=== PATIENT | female | born 1970 | race African-American/Black ===

== ENCOUNTER 2019-05-24 15:57 | Emergency (ER) | payer SELFPAY ==
--- NOTE | 2019-05-24 16:30 | PHYS DOC ---
Past History Past Medical History: Seizure (SHAILESH MARQUEZ MD) Adult General Chief Complaint Chief Complaint: possible seizure HPI HPI 49-year-old female presents with concern for seizure. The patient tells me that she is fine and she doesn't think anything happened. Her daughter reports that she had an episode of shaking her head that lasted about 3 minutes. It then stopped. The patient had a second similar episode lasted for 4 minutes. They decided they should bring the patient to the hospital. When asked the patient if she has a seizure disorder, she states that she was diagnosed with one at many years ago. She is not able to tell me if she has had recent seizures. She is not on any seizure medications. She was reported to be smoking marijuana today. The patient is slow to answer my questions. She denies any traumas or falls. (TYREE JACKSON DO) Review of Systems Review of Systems Constitutional: Denies fever or chills [] Eyes: Denies change in visual acuity, redness, or eye pain [] HENT: Denies nasal congestion or sore throat [] Respiratory: Denies cough or shortness of breath [] Cardiovascular: No additional information not addressed in HPI [] GI: Denies abdominal pain, nausea, vomiting, bloody stools or diarrhea [] : Denies dysuria or hematuria [] Musculoskeletal: Denies back pain or joint pain [] Integument: Denies rash or skin lesions [] Neurologic: Seizure. Denies headache, focal weakness or sensory changes [] Endocrine: Denies polyuria or polydipsia [] All other systems were reviewed and found to be within normal limits, except as documented in this note. (TYREE JACKSON DO) Physical Exam Physical Exam Constitutional: Well developed, well nourished, no acute distress, non-toxic appearance. [] HENT: Normocephalic, atraumatic, bilateral external ears normal, oropharynx moist, no oral exudates, nose normal. [] Eyes: PERRLA, EOMI, conjunctiva normal, no discharge. [] Neck: Normal range of motion, no tenderness, supple, no stridor. [] Cardiovascular:Heart rate regular rhythm, no murmur [] Lungs & Thorax: Bilateral breath sounds clear to auscultation [] Abdomen: Bowel sounds normal, soft, no tenderness, no masses, no pulsatile masses. [] Skin: Warm, dry, no erythema, no rash. [] Back: No tenderness, no CVA tenderness. [] Extremities: No tenderness, no cyanosis, no clubbing, ROM intact, no edema. [] Neurologic: Slow to answer questions. Alert and oriented X 3, normal motor function, normal sensory function, no focal deficits noted. [] Psychologic: Affect normal, judgement normal, mood tearful. [] (TYREE JACKSON DO) EKG EKG Sinus rhythm, rate 63, normal axis, no ST elevations or depressions.[] (TYREE JACKSON DO) Radiology/Procedures Radiology/Procedures [] Impressions: CHEST AP ONLY History: Seizure.. Heart size is not enlarged. No evidence of pneumothorax, pleural effusion or infiltrate. Bones appear grossly intact. Degenerative spurring at the acromioclavicular joints bilaterally. Mild aortic tortuosity. IMPRESSION: No acute infiltrate. Electronically signed by: Raad Mccann MD (05/24/2019 5:12 PM) [facility] DICTATED AND SIGNED BY: RAAD MCCANN MD DATE: 05/24/191711 CC: TYREE JACKSON DO; PCP,NO ~ (TYREE JACKSON DO) Radiology/[place] [address] IMAGING REPORT Signed PATIENT: SYLVIA CURTIS ACCOUNT: [id number] : 1970 LOCATION: ER AGE: 49 SEX: F EXAM STATUS: REG ER ORD. PHYSICIAN: SHAILESH MARQUEZ MD REASON: seizure PROCEDURE: CT HEAD WO CONTRAST CT brain without contrast. HISTORY: Seizure CT scan of the brain was done without contrast. Sinuses are clear. There is no mass or shift of the midline. An acute CVA is not identified. There is no intracranial hemorrhage or subdural hematoma. Ventricles are normal in size. IMPRESSION: 1. No intracranial hemorrhage or mass or acute finding noted. Electronically signed by: Marky Flanagan MD (05/24/2019 7:22 PM) [facility] DICTATED AND SIGNED BY: MARKY FLANAGAN MD DATE: 05/24/191921 CC: SHAILESH MARQUEZ MD; PCP,NO ~ (SHAILESH MARQUEZ MD) Course & Med Decision Making Course & Med Decision Making Pertinent Labs and Imaging studies reviewed. (See chart for details) Patient's chest x-ray is unremarkable. Her EKG is unremarkable. Her labs are pending. The patient has a headache and I will give her 1 g of Tylenol. I'm signing the patient out to Dr. Marquez at 1800. He will determine her final disposition. [] (TYREE JACKSON DO) Course & Med Decision Making Impression: 1. Hx. Seizure vs Pseudoseizure 2. Hx. Anxiety Disorder. 3. Hx. Marijuana and Tobacco Use (SHAILESH MARQUEZ MD) Dragon Disclaimer Dragon Disclaimer This electronic medical record was generated, in whole or in part, using a voice recognition dictation system. (TYREE JACKSON DO) Departure Departure: Referrals: PCP,NO (PCP) Discharge Summary Visit Information Final Diagnosis Problems Medical Problems: (1) Seizure Status: Acute (SHAILESH MARQUEZ MD) Final Diagnosis Problems Medical Problems: (1) Seizure Status: Acute (TYREE JACKSON DO) Brief Hospital Course Allergies Allergies Coded Allergies Type Severity Reaction Last Updated Verified No Known Drug Allergies 05/24/19 No Vital Signs Vital Signs Date Time Temp Pulse Resp B/P (MAP) Pulse Ox O2 Delivery O2 Flow Rate FiO2 05/24/19 18:20 63 18 97 Room Air 05/24/19 18:02 96/58 (71) 05/24/19 15:57 98.0 Lab Results Laboratory Tests Test 05/24/19 17:13 05/24/19 20:10 White Blood Count 4.6 x10^3/uL (4.0-11.0) Red Blood Count 4.85 x10^6/uL (3.50-5.40) Hemoglobin 15.0 g/dL (12.0-15.5) Hematocrit 45.9 % (36.0-47.0) Mean Corpuscular Volume 95 fL (79-100) Mean Corpuscular Hemoglobin 31 pg (25-35) Mean Corpuscular Hemoglobin Concent 33 g/dL (31-37) Red Cell Distribution Width 15.5 % (11.5-14.5) Platelet Count 208 x10^3/uL (140-400) Neutrophils (%) (Auto) 54 % (31-73) Lymphocytes (%) (Auto) 31 % (24-48) Monocytes (%) (Auto) 12 % (0-9) Eosinophils (%) (Auto) 2 % (0-3) Basophils (%) (Auto) 1 % (0-3) Neutrophils # (Auto) 2.5 x10^3uL (1.8-7.7) Lymphocytes # (Auto) 1.4 x10^3/uL (1.0-4.8) Monocytes # (Auto) 0.6 x10^3/uL (0.0-1.1) Eosinophils # (Auto) 0.1 x10^3/uL (0.0-0.7) Basophils # (Auto) 0.0 x10^3/uL (0.0-0.2) Erythrocyte Sedimentation Rate 5 (0-25) Sodium Level 141 mmol/L (136-145) Potassium Level 4.5 mmol/L (3.5-5.1) Chloride Level 104 mmol/L (98-107) Carbon Dioxide Level 30 mmol/L (21-32) Anion Gap 7 (6-14) Blood Urea Nitrogen 9 mg/dL (7-20) Creatinine 0.7 mg/dL (0.6-1.0) Estimated GFR (Cockcroft-Gault) 106.7 BUN/Creatinine Ratio 13 (6-20) Glucose Level 99 mg/dL (70-99) Calcium Level 9.6 mg/dL (8.5-10.1) Total Bilirubin 0.3 mg/dL (0.2-1.0) Aspartate Amino Transf (AST/SGOT) 17 U/L (15-37) Alanine Aminotransferase (ALT/SGPT) 25 U/L (14-59) Alkaline Phosphatase 75 U/L (46-116) Troponin I Quantitative < 0.017 ng/mL (0-0.055) Total Protein 7.5 g/dL (6.4-8.2) Albumin 3.7 g/dL (3.4-5.0) Albumin/Globulin Ratio 1.0 (1.0-1.7) Urine Collection Type Unknown Urine Color Mar Urine Clarity Cloudy Urine pH 6.0 Urine Specific Bee 1.025 Urine Protein 30 mg/dl (NEG-TRACE) Urine Glucose (UA) Neg mg/dL (NEG) Urine Ketones (Stick) Neg mg/dL (NEG) Urine Blood Large (NEG) Urine Nitrite Neg (NEG) Urine Bilirubin Neg (NEG) Urine Urobilinogen Dipstick 1 mg/dL (0.2 mg/dL) Urine Leukocyte Esterase Neg (NEG) Urine RBC 6-10 /HPF (0-2) Urine WBC Occ /HPF (0-4) Urine Squamous Epithelial Cells Mod /LPF Urine Bacteria Few /HPF (0-FEW) Urine Mucus Slight /LPF Urine Opiates Screen Neg (NEG) Urine Methadone Screen Neg (NEG) Urine Barbiturates Neg (NEG) Urine Phencyclidine Screen Neg (NEG) Urine Amphetamine/Methamphetamine Neg (NEG) Urine Benzodiazepines Screen Neg (NEG) Urine Cocaine Screen Neg (NEG) Urine Cannabinoids Screen Pos (NEG) Urine Ethyl Alcohol Neg (NEG) Brief Hospital Course Ms. Curtis is a 49 old female who presented with hx of seizure vs pseudo seizure. (SHAILESH MARQUEZ MD) Allergies Allergies Coded Allergies Type Severity Reaction Last Updated Verified No Known Drug Allergies 05/24/19 No Vital Signs Vital Signs Date Time Temp Pulse Resp B/P (MAP) Pulse Ox O2 Delivery O2 Flow Rate FiO2 05/24/19 18:20 63 18 97 Room Air 05/24/19 18:02 96/58 (71) 05/24/19 15:57 98.0 Lab Results Laboratory Tests Test 05/24/19 17:13 05/24/19 20:10 White Blood Count 4.6 x10^3/uL (4.0-11.0) Red Blood Count 4.85 x10^6/uL (3.50-5.40) Hemoglobin 15.0 g/dL (12.0-15.5) Hematocrit 45.9 % (36.0-47.0) Mean Corpuscular Volume 95 fL (79-100) Mean Corpuscular Hemoglobin 31 pg (25-35) Mean Corpuscular Hemoglobin Concent 33 g/dL (31-37) Red Cell Distribution Width 15.5 % (11.5-14.5) Platelet Count 208 x10^3/uL (140-400) Neutrophils (%) (Auto) 54 % (31-73) Lymphocytes (%) (Auto) 31 % (24-48) Monocytes (%) (Auto) 12 % (0-9) Eosinophils (%) (Auto) 2 % (0-3) Basophils (%) (Auto) 1 % (0-3) Neutrophils # (Auto) 2.5 x10^3uL (1.8-7.7) Lymphocytes # (Auto) 1.4 x10^3/uL (1.0-4.8) Monocytes # (Auto) 0.6 x10^3/uL (0.0-1.1) Eosinophils # (Auto) 0.1 x10^3/uL (0.0-0.7) Basophils # (Auto) 0.0 x10^3/uL (0.0-0.2) Erythrocyte Sedimentation Rate 5 (0-25) Sodium Level 141 mmol/L (136-145) Potassium Level 4.5 mmol/L (3.5-5.1) Chloride Level 104 mmol/L (98-107) Carbon Dioxide Level 30 mmol/L (21-32) Anion Gap 7 (6-14) Blood Urea Nitrogen 9 mg/dL (7-20) Creatinine 0.7 mg/dL (0.6-1.0) Estimated GFR (Cockcroft-Gault) 106.7 BUN/Creatinine Ratio 13 (6-20) Glucose Level 99 mg/dL (70-99) Calcium Level 9.6 mg/dL (8.5-10.1) Total Bilirubin 0.3 mg/dL (0.2-1.0) Aspartate Amino Transf (AST/SGOT) 17 U/L (15-37) Alanine Aminotransferase (ALT/SGPT) 25 U/L (14-59) Alkaline Phosphatase 75 U/L (46-116) Troponin I Quantitative < 0.017 ng/mL (0-0.055) Total Protein 7.5 g/dL (6.4-8.2) Albumin 3.7 g/dL (3.4-5.0) Albumin/Globulin Ratio 1.0 (1.0-1.7) Urine Collection Type Unknown Urine Color Mar Urine Clarity Cloudy Urine pH 6.0 Urine Specific Bee 1.025 Urine Protein 30 mg/dl (NEG-TRACE) Urine Glucose (UA) Neg mg/dL (NEG) Urine Ketones (Stick) Neg mg/dL (NEG) Urine Blood Large (NEG) Urine Nitrite Neg (NEG) Urine Bilirubin Neg (NEG) Urine Urobilinogen Dipstick 1 mg/dL (0.2 mg/dL) Urine Leukocyte Esterase Neg (NEG) Urine RBC 6-10 /HPF (0-2) Urine WBC Occ /HPF (0-4) Urine Squamous Epithelial Cells Mod /LPF Urine Bacteria Few /HPF (0-FEW) Urine Mucus Slight /LPF Urine Opiates Screen Neg (NEG) Urine Methadone Screen Neg (NEG) Urine Barbiturates Neg (NEG) Urine Phencyclidine Screen Neg (NEG) Urine Amphetamine/Methamphetamine Neg (NEG) Urine Benzodiazepines Screen Neg (NEG) Urine Cocaine Screen Neg (NEG) Urine Cannabinoids Screen Pos (NEG) Urine Ethyl Alcohol Neg (NEG) Brief Hospital Course Ms. Curtis is a 49 old [sex] who presented with [ ] (TYREE JACKSON DO) Discharge Information Condition at Discharge: Improved, Stable Disposition/Orders: D/C to Home Dischare Medications Current Medications Acetaminophen (Tylenol) 1,000 mg 1X ONCE PO Last administered on 05/24/19at 17:54; Start 05/24/19 at 18:00; Stop 05/24/19 at 18:01; Status DC Lorazepam (Ativan) 1 mg 1X ONCE PO Last administered on 05/24/19at 20:27; Start 05/24/19 at 20:30; Stop 05/24/19 at 20:31; Status DC Ibuprofen (Motrin) 800 mg 1X ONCE PO Last administered on 05/24/19at 20:28; Start 05/24/19 at 20:30; Stop 05/24/19 at 20:31; Status DC Ibuprofen (Motrin) 400 mg STK-MED ONCE PO ; Start 05/24/19 at 20:24; Stop 05/24/19 at 20:25; Status DC (SHAILESH MARQUEZ MD) Dischare Medications Current Medications Acetaminophen (Tylenol) 1,000 mg 1X ONCE PO Last administered on 05/24/19 17:54; Start 05/24/19 at 18:00; Stop 05/24/19 at 18:01; Status DC Lorazepam (Ativan) 1 mg 1X ONCE PO Last administered on 05/24/19at 20:27; Start 05/24/19 at 20:30; Stop 05/24/19 at 20:31; Status DC Ibuprofen (Motrin) 800 mg 1X ONCE PO Last administered on 05/24/19at 20:28; Start 05/24/19 at 20:30; Stop 05/24/19 at 20:31; Status DC Ibuprofen (Motrin) 400 mg STK-MED ONCE PO ; Start 05/24/19 at 20:24; Stop 05/24/19 at 20:25; Status DC (TYREE JACKSON DO) Dragon Disclaimer This chart was dictated in whole or in part using Voice Recognition software in a busy, high-work load, and often noisy Emergency Department environment. It may contain unintended and wholly unrecognized errors or omissions. (SHAILESH MARQUEZ MD) Dragon Disclaimer This chart was dictated in whole or in part using Voice Recognition software in a busy, high-work load, and often noisy Emergency Department environment. It may contain unintended and wholly unrecognized errors or omissions. (TYREE JACKSON DO) TYREE JACKSON DO May 24, 2019 16:30 SHAILESH MARQUEZ MD May 24, 2019 19:42
--- NOTE | 2019-05-24 17:13 | EKG ---
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
--- NOTE | 2019-05-24 17:14 | RAD ---
CHEST AP ONLY History: Seizure.. Heart size is not enlarged. No evidence of pneumothorax, pleural effusion or infiltrate. Bones appear grossly intact. Degenerative spurring at the acromioclavicular joints bilaterally. Mild aortic tortuosity. IMPRESSION: No acute infiltrate. Electronically signed by: Raad Mccann MD (05/24/2019 5:12 PM) [facility]
[2019-05-24 17:26] LABS: BASO % 1 % (0-3); EOS # 0.1 x10^3/uL (0.0-0.7); EOS % 2 % (0-3); HEMATOCRIT 45.9 % (36.0-47.0); LYMPH # 1.4 x10^3/uL (1.0-4.8); LYMPH % 31 % (24-48); MEAN CORPUSCULAR HEMOGLOBIN 31 pg (25-35); MEAN CORPUSCULAR HGB CONC 33 g/dL (31-37); MEAN CORPUSCULAR VOLUME 95 fL (79-100); MONO # 0.6 x10^3/uL (0.0-1.1); MONO % 12 % (0-9); NEUT # 2.5 x10^3uL (1.8-7.7); NEUT % 54 % (31-73); PLATELET COUNT 208 x10^3/uL (140-400); RED BLOOD COUNT 4.85 x10^6/uL (3.50-5.40); RED CELL DISTRIBUTION WIDTH 15.5 % (11.5-14.5); WHITE BLOOD COUNT 4.6 x10^3/uL (4.0-11.0)
[2019-05-24 17:40] LABS: ALBUMIN 3.7 g/dL (3.4-5.0); CALCIUM 9.6 mg/dL (8.5-10.1); CREATININE 0.7 mg/dL (0.6-1.0); GFR 106.7; POTASSIUM 4.5 mmol/L (3.5-5.1); TOTAL BILIRUBIN 0.3 mg/dL (0.2-1.0); TOTAL PROTEIN 7.5 g/dL (6.4-8.2)
[2019-05-24] MEDS ORDERED: ACETAMINOPHEN 500 MG TABLET PO ONE (18:00)
[2019-05-24 18:02] VITALS: BP 96/58
--- NOTE | 2019-05-24 19:24 | RAD ---
CT brain without contrast. HISTORY: Seizure CT scan of the brain was done without contrast. Sinuses are clear. There is no mass or shift of the midline. An acute CVA is not identified. There is no intracranial hemorrhage or subdural hematoma. Ventricles are normal in size. IMPRESSION: 1. No intracranial hemorrhage or mass or acute finding noted. Electronically signed by: Marky Flanagan MD (05/24/2019 7:22 PM) [facility]
[2019-05-24 20:24] LABS: BACTERIA,URINE FEW /HPF (0-FEW); BILIRUBIN,URINE NEG (NEG); CLARITY,URINE CLOUDY; COLOR,URINE AMBER; GLUCOSE,URINE NEG (NEG); NITRITE,URINE NEG (NEG); SQUAMOUS EPITHELIAL CELL,UR MOD /LPF; UROBILINOGEN,URINE 1 mg/dL (0.2 mg/dL); WBC,URINE OCC /HPF (0-4)
[2019-05-24] MEDS ORDERED: IBUPROFEN 400 MG TABLET. PO ONE ×2 (20:24→20:30)
[2019-05-24 20:29] LABS: AMPHETAMINE/METHAMPHETAMINE NEG (NEG); BARBITURATES NEG (NEG); BENZODIAZEPINES NEG (NEG); CANNABINOIDS POS (NEG); COCAINE NEG (NEG); METHADONE NEG (NEG); OPIATES NEG (NEG); PHENCYCLIDINE NEG (NEG)
[2019-05-24] MEDS ORDERED: LORazepam 1 MG TABLET PO ONE (20:30)
== END 2019-05-24 20:40 | disposition home or self-care (01) ==
LOC: ER 15:57
DX: G40.909 Epilepsy, unspecified, not intractable, without status epilepticus (principal); F12.10 Cannabis abuse, uncomplicated; F41.9 Anxiety disorder, unspecified; Z72.0 Tobacco use
CPT/HCPCS: 36415; 70450; 71045; 80053; 80307; 81001; 84484; 85025; 85651; 93005; 99285